=== PATIENT | female | born 1995 | race Caucasian/White ===

== ENCOUNTER 2019-06-20 14:04 | Emergency (ER) | payer MEDICAID, OTHER ==
[~2019-06-20] VITALS: Ht 162.6 cm; Wt 54.7 kg
[~2019-06-20 14:04] MED LIST: DOXY100C2 PO; TRET20CR2 TP
[2019-06-20 14:07] VITALS: BP 112/83
--- NOTE | 2019-06-20 14:18 | NUR ---
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 HAS GOOD PEDAL PULSE AND CMS INTACT.
--- NOTE | 2019-06-20 15:38 | NUR ---
PT DEMONSTRATES PROPER CRUTCH TECHNIQUE. DC'D WITH FOLLOW UP INSTRUCTIONS.
== END 2019-06-20 15:40 | disposition home or self-care (01) ==
LOC: ED 15:32
DX: S82.62XA Displaced fracture of lateral malleolus of left fibula, initial encounter for closed fracture (principal); W01.0XXA Fall on same level from slipping, tripping and stumbling without subsequent striking against object, initial encounter; Y93.89 Activity, other specified; Y92.89 Other specified places as the place of occurrence of the external cause; Y99.8 Other external cause status
CPT/HCPCS: 29515; 99284

== ENCOUNTER 2019-09-25 08:44 | Emergency (ER) | payer MEDICAID ==
[~2019-09-25] VITALS: Ht 162.6 cm; Wt 55.2 kg
--- NOTE | 2019-09-25 09:14 | NUR ---
PT PRESENTS TO ED WITH C/O DIZZINESS, BILATERAL EAR ACHE, HEADACHE, N/V X 2 DAYS. EKG TAKEN IN TRIAGE. PT A&O, RESPS EVEN AND UNLABORED, NEURO INTACT. ALL MONITORS IN PLACE, CALL LIGHT IN REACH. AWAITING MD AND DISPO.
[2019-09-25] MEDS ORDERED: MECLIZINE CHEWABLE 25 MG TAB ONE (09:37)
[2019-09-25] MEDS ORDERED: MECLIZINE CHEWABLE 25 MG TAB PO ONE (10:00)
--- NOTE | 2019-09-25 10:05 | NUR ---
PT TAKEN TO CT, NADN AT TRANSPORT.
[2019-09-25 10:53] VITALS: BP 109/78
--- NOTE | 2019-09-25 10:54 | NUR ---
CT reviewed by EDMD, dc orders received. Pt given dc instructions and script, educated regarding rx for medrol dose pack and meclizine rx. pt a&o, resps even and unlabored, nsr on refractory repairer with no ectopy. pt ambulatory with steady gait, given wc escort to dc. pt states dizziness improved s/p meclizine. nadn at dc.
== END 2019-09-25 10:55 | disposition home or self-care (01) ==
LOC: ED 10:43
DX: R42 Dizziness and giddiness (principal); H92.03 Otalgia, bilateral; R11.2 Nausea with vomiting, unspecified; R51 Headache
CPT/HCPCS: 70450; 93005; 99284; J7512

== ENCOUNTER 2020-03-15 17:15 | Emergency (ER) | payer MEDICAID ==
[~2020-03-15] VITALS: Ht 162.6 cm; Wt 61.9 kg
[2020-03-15] MEDS ORDERED: DIAZEPAM 5 MG TABLET PO ONE (18:00)
--- NOTE | 2020-03-15 18:12 | NUR ---
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
[2020-03-15] MEDS ORDERED: DIAZEPAM 5 MG TABLET ONE (18:37)
--- NOTE | 2020-03-15 18:40 | NUR ---
PT PRESENTS TO ED WITH C/O DIZZINESS. PT HAS BEEN SEEN HERE FOR SAME, GIVEN RX FOR MECLIZINE WHICH SHE TOOK TODAY WITHOUT SYMPTOM IMPROVEMENT. ALL MONITORS IN PLACE . PT A&O, RESPS EVEN AND UNLABORED, NSR ON [employer] CONSULTANT WITH NO ECTOPY. NEURO INTACT. CALL LIGHT IN REACH. S/O AT BEDSIDE. PT UNABLE TO TOLERATE STANDING FOR OTHOS, SUPINE/SITTING ORTHOS REVIEWED WITH CHAYO WAYNE. AWAITING LAB RESULTS AND DISPO.
--- NOTE | 2020-03-15 18:55 | NUR ---
BEDSIDE REPORT GIVEN TO RN'S RODRIGO.
[2020-03-15 18:56] LABS: BASOPHILS % (AUTO) 1 % (0-1); EOSINOPHILS % (AUTO) 1 % (1-7); LYMPHOCYTES % (AUTO) 23 % (22-44); MEAN CORPUSCULAR HEMOGLOBIN 30.7 pg (27.0-34.8); MEAN CORPUSCULAR HGB CONC 34.2 g/dL (32.4-35.8); MEAN PLATELET VOLUME 7.3 fL (7.4-10.4); MONOCYTES % (AUTO) 7 % (2-9); NEUTROPHILS % (AUTO) 68 % (42-75); PLATELET COUNT 314 x10^3/uL (130-400); RED BLOOD COUNT 4.69 x10^6/uL (3.82-5.3); RED CELL DISTRIBUTION WIDTH 12.3 % (9.6-15.2)
[2020-03-15 18:58] LABS: MD NO
--- NOTE | 2020-03-15 18:58 | NUR ---
I assumed care of this patient at this time. Bedside report received from Tj RIVERA
[2020-03-15 19:05] LABS: ALANINE AMINOTRANSFERASE 51 U/L (12-78); ALBUMIN 3.8 g/dL (3.4-5.0); CALCIUM 9.2 mg/dL (8.5-10.1); CREATININE 0.96 mg/dL (0.55-1.02)
[2020-03-15 19:09] LABS: ALKALINE PHOSPHATASE 39 U/L (45-117); BILIRUBIN,TOTAL 0.3 mg/dL (0.2-1.0); TOTAL PROTEIN 7.6 g/dL (6.4-8.2)
[2020-03-15 19:15] LABS: ANION GAP 6 mmol/L (5-15); CHLORIDE 111 mmol/L (98-107)
--- NOTE | 2020-03-15 19:28 | NUR ---
Pt feeling better, less dizziness and nausea. VSS. Waiting for md re-eval/dispo. AIDET provided.
[2020-03-15 20:33] VITALS: BP 105/63
== END 2020-03-15 21:52 ==
LOC: ED 18:30
DX: R42 Dizziness and giddiness (principal); R94.31 Abnormal electrocardiogram [ECG] [EKG]
CPT/HCPCS: 36415; 80053; 84703; 85025; 93005; 99285